=== PATIENT | male | born 1975 | race Caucasian/White ===

== ENCOUNTER 2021-07-22 11:31 | Observation (INO) ==
[2021-07-22] MEDS ORDERED: Lactated Ringers 1000 ml BAG 1,000 ML IV ONE ×2 (13:00→14:13)
[2021-07-22 14:10] LABS: Hematocrit 41 % (42-52); Hemoglobin 14.5 g/dL (14.0-18.0); Mean Corpuscular HGB Conc 35 g/dL (31-36); Mean Corpuscular Hemoglobin 29 pg (27-31); Mean Corpuscular Volume 82 fL (80-94); Platelet Count 325 10^3/uL (150-450); Red Blood Count 4.99 10^6 /uL (4.18-5.48); Red Cell Distribution Width 15 % (10-15); White Blood Count 21.7 10^3/uL (3.5-10.8)
[2021-07-22] MEDS ORDERED: Piperacillin/Tazobac ADVAN 3.375 GM in NS 0.9% 100 ml BAG 100 ML IVPB ONE (14:14)
[2021-07-22 14:32] LABS: ABS Basophils 0.1 10^3/ul (0-0.2); ABS Eosinophils 0.1 10^3/ul (0-0.6); ABS Lymphocytes 2.5 10^3/ul (1.0-4.8); ABS Monocytes 2.1 10^3/ul (0-0.8); ABS Neutrophils 16.9 10^3/ul (1.5-7.7); Eosinophil % 0.4 %; Lymphocyte % 11.8 %
[2021-07-22 14:55] LABS: Albumin 4.2 g/dL (3.2-5.2); Albumin/Globulin Ratio 1.2 (1-3); C Reactive Protein 407.42 mg/L (<8.01); Calcium 9.5 mg/dL (8.6-10.3); Globulin 3.6 g/dL (2-4); Potassium 3.2 mmol/L (3.5-5.0); Total Bilirubin 1.8 mg/dL (0.2-1.0); Total Protein 7.8 g/dL (6.4-8.9)
[2021-07-22] MEDS ORDERED: Iodixanol (CONTRAST) 320 MG/ML 100 ML SDV IV ONE (15:41)
[2021-07-22 15:56] LABS: Rapid COVID-19 Molecular Undetected (Undetected)
[2021-07-22] MEDS: KCL 20 MEQ/100 ML IVPREMIX 20 MEQ/100 ML BAG IV SCH ×2 (16:51→19:41)
[2021-07-22 17:06] LABS: Direct Bilirubin 0.3 mg/dL (0.03-0.18); Indirect Bilirubin 1.5 mg/dL (0.3-1.0)
[2021-07-22] MEDS ORDERED: Ondansetron 4 mg VIAL 2 MG/ML 2 ml VIAL IV PRN (17:52)
[2021-07-22] MEDS ORDERED: Acetaminophen IV 1 GM/100ML 100 ML IV PRN (17:52)
[2021-07-22] MEDS ORDERED: Ondansetron 4 mg VIAL 2 MG/ML 2 ml VIAL IV ONE (17:52)
[2021-07-22] MEDS ORDERED: Morphine 4 MG/ML VIAL (1 ml) IV ONE (17:52)
[2021-07-22] MEDS ORDERED: HYDROmorphone 0.5 MG/0.5 ML SYRINGE IV SLOW PU PRN (17:52)
[2021-07-22] MEDS ORDERED: D5W 1/2 NS 40 Meq KCL 1000 ml 1,000 ML IV SCH (18:00)
[2021-07-22] MEDS ORDERED: Lactated Ringers 1000 ml BAG 1,000 ML IV SCH (18:00)
[2021-07-22] MEDS ORDERED: Dextrose 50% Syringe 50 ml 25 GM/50 ML SYRINGE IV PUSH PRN (18:39)
[2021-07-22] MEDS: HYDROmorphone 1 MG/1 ML SYRINGE IV SLOW PU PRN (23:33)
[2021-07-23] MEDS: Piperacillin/Tazobac ADVAN 3.375 GM in NS 0.9% 100 ml BAG 100 ML IV SCH ×3 (03:55→19:59)
[2021-07-23 05:51] LABS: ABS Eosinophils 0.1 10^3/ul (0-0.6); ABS Lymphocytes 1.8 10^3/ul (1.0-4.8); ABS Monocytes 1.2 10^3/ul (0-0.8); ABS Neutrophils 12.7 10^3/ul (1.5-7.7); Eosinophil % 0.3 %; Hematocrit 39 % (42-52); Lymphocyte % 11.4 %; Mean Corpuscular HGB Conc 34 g/dL (31-36); Mean Corpuscular Hemoglobin 28 pg (27-31); Mean Corpuscular Volume 83 fL (80-94); Platelet Count 308 10^3/uL (150-450); Red Blood Count 4.64 10^6 /uL (4.18-5.48); Red Cell Distribution Width 15 % (10-15); White Blood Count 15.8 10^3/uL (3.5-10.8)
[2021-07-23] MEDS: HYDROmorphone 1 MG/1 ML SYRINGE IV SLOW PU PRN (05:57)
[2021-07-23 06:15] LABS: Albumin 3.6 g/dL (3.2-5.2); Calcium 8.8 mg/dL (8.6-10.3); Globulin 3.5 g/dL (2-4); Potassium 3.5 mmol/L (3.5-5.0); Total Bilirubin 1.9 mg/dL (0.2-1.0); Total Protein 7.1 g/dL (6.4-8.9); eGFR CKD-EPI 112.6 (>60)
[2021-07-23] MEDS ORDERED: Lidocaine 1% w EPI 1:100,000 MDV 20 ML VIAL ONE (09:27)
[2021-07-23] MEDS ORDERED: Bupivacaine 0.25% SDV 30 ML ONE (09:27)
[2021-07-23] MEDS ORDERED: Piperacillin/Tazobac 3.375 GM BAG ONE (10:42)
[2021-07-23] MEDS ORDERED: fentaNYL 100 mcg/2 ml 50 MCG/ML VIAL IV PRN (10:56)
[2021-07-23] MEDS ORDERED: Acetaminophen IV 1 GM/100ML 100 ML IV ONE ×2 (10:56→12:30)
[2021-07-23] MEDS ORDERED: DiMENhydriNATE IV 50 mg/ml 1 ml VIAL IV PUSH PRN (10:56)
[2021-07-23] MEDS ORDERED: Naloxone 0.4 mg VIAL 0.4 mg/ml 1 ml VIAL IV PRN (10:56)
[2021-07-23] MEDS ORDERED: HYDROmorphone 1 MG/1 ML SYRINGE IV PRN (10:56)
[2021-07-23] MEDS ORDERED: Ondansetron 4 mg VIAL 2 MG/ML 2 ml VIAL IV PRN (10:56)
[2021-07-23] MEDS ORDERED: Midazolam 2 mg/2 ml VIAL 1 mg/ml 2 ml VIAL (2 mg) ONE (11:10)
[2021-07-23] MEDS ORDERED: fentaNYL 250 mcg/5 ml 50 MCG/ML 5 ml VIAL (250 MCG) ONE (11:10)
[2021-07-23] MEDS ORDERED: Rocuronium 50 mg VIAL 10 mg/ml 5 ml VIAL (50 mg) ONE ×2 (11:11→11:21)
[2021-07-23] MEDS ORDERED: Lidocaine 2% PF 5 ML VIAL ONE (11:15)
[2021-07-23] MEDS ORDERED: Propofol 10 MG/ML 20 ML BTL ONE ×3 (11:15→13:32)
[2021-07-23] MEDS ORDERED: Artificial Tear OPHTH.OINT 3.5 GM ONE (11:57)
[2021-07-23] MEDS ORDERED: HYDROmorphone 0.5 MG/0.5 ML SYRINGE ONE ×2 (12:12)
[2021-07-23] MEDS ORDERED: Sugammadex 500 MG/5 ML 5 ml VIAL IV PUSH ONE (12:13)
[2021-07-23] MEDS ORDERED: Ondansetron 4 mg VIAL 2 MG/ML 2 ml VIAL ONE (12:13)
[2021-07-23] MEDS ORDERED: Dexamethasone IV 4 MG/ML VIAL 1 ml VIAL ONE (12:13)
[2021-07-24] MEDS: Piperacillin/Tazobac ADVAN 3.375 GM in NS 0.9% 100 ml BAG 100 ML IV SCH (03:53)
[2021-07-24 11:59] VITALS: BP 152/95
== END 2021-07-24 13:00 | disposition home or self-care (01) ==
LOC: ED 11:31 → EDHOLD 11:31 → SSU 07-23 01:07
PROVIDERS: ADMIT Physician Assistant Surgical; ATTEND Surgery